=== PATIENT | male | born 1980 | race American Indian/Alaskan Native ===

== ENCOUNTER 2019-08-20 06:36 | Day surgery (SDC) | payer OTHER ==
[~2019-08-20 06:36] MED LIST: Lactated Ringers 1,000 ML IV SCH; cefOXitin 2 GM in Premix Bag 1 BAG IV ONE
[2019-08-20] MEDS ORDERED: fentaNYL 250 MCG/5 ML SDV ONE (07:01)
[2019-08-20] MEDS ORDERED: Propofol 200 MG/20 ML SDV ONE (07:01)
[2019-08-20] MEDS ORDERED: Midazolam 1 MG/ML 2 ML SDV ONE (07:01)
[2019-08-20] MEDS ORDERED: Ondansetron 4 MG/2 ML SDV ONE (07:01)
[2019-08-20] MEDS ORDERED: Rocuronium 100 MG/10 ML Syringe ONE (07:02)
[2019-08-20] MEDS ORDERED: Scopolamine 1.5 MG Transdermal Patch ONE (07:12)
[2019-08-20] MEDS ORDERED: Bupivacaine 0.5% 30 ML SDV ONE (07:33)
[2019-08-20] MEDS ORDERED: ceFAZolin 1 GM Vial ONE (07:33)
--- NOTE | 2019-08-20 07:33 | PCM.PREANE ---
Preanesthetic Assessment - Anesthesia/Transfusion/Family Hx Anesthesia History: Prior Anesthesia Without Reaction Family History of Anesthesia Reaction: No Transfusion History: No Prior Transfusion(s) - Review of Systems General: No Symptoms Pulmonary: No Symptoms Cardiovascular: No Symptoms Gastrointestinal: No Symptoms Neurological: No Symptoms Other: Reports: None - Physical Assessment NPO Status Date: 08/19/19 Height: 6 ft 7 in Weight: 112.037 kg ASA Class: 2 Mental Status: Alert & Oriented x3 Airway Class: Mallampati = 2 Dentition: Reports: Normal Dentition ROM/Head Extension: Full Lungs: Clear to Auscultation, Normal Respiratory Effort Cardiovascular: Regular Rate, Regular Rhythm - Allergies Allergies/Adverse Reactions: Allergies Allergy/AdvReac Type Severity Reaction Status Date / Time ampicillin Allergy Cannot Verified 08/16/19 10:15 Remember sulfamethoxazole Allergy Cannot Verified 08/16/19 10:15 [From Bactrim] Remember trimethoprim [From Bactrim] Allergy Cannot Verified 08/16/19 10:15 Remember - Blood Blood Available: No - Anesthesia Plan Pre-Op Medication Ordered: Other (scop) - Acknowledgements Anesthesia Type Planned: General Anesthesia Pt an Appropriate Candidate for the Planned Anesthesia: Yes Alternatives and Risks of Anesthesia Discussed w Pt/Guardian: Yes Pt/Guardian Understands and Agrees with Anesthesia Plan: Yes Additional Comments: PMH: htn: on losartan, 149/92 upon arrival, smoker PLAN: get PreAnesthesia Questionnaire HEENT History: Reports: Other (See Below) Other HEENT History: wears glasses, contacts Cardiovascular History: Reports: Hypertension Gastrointestinal History: Reports: Other (See Below) Other Gastrointestinal History: occasional heartburn- takes TUMS Musculoskeletal History: Reports: Fracture Other Musculoskeletal History: hx of fx heel - Past Surgical History GI Surgical History: Reports: Appendectomy - SUBSTANCE USE Smoking Status *Q: Current Every Day Smoker Tobacco Use Within Last Twelve Months: Cigarettes Recreational Drug Use History: No - HOME MEDS Home Medications: Home Meds Losartan Potassium 25 mg PO QAM 08/16/19 [History] - CURRENT (IN HOUSE) MEDS Current Meds: Current Medications Lactated Ringer's (Ringers, Lactated) 1,000 mls @ 125 mls/hr IV ASDIRECTED BETTY Discontinued Medications Fentanyl (Sublimaze) Confirm Administered Dose 250 mcg .ROUTE .STK-MED ONE Stop: 08/20/19 07:02 Cefoxitin Sodium 2 gm/ Premix 50 mls @ 100 mls/hr IV ONETIME ONE Stop: 08/20/19 06:29 Lidocaine HCl (Xylocaine-Mpf 1%) Confirm Administered Dose 5 ml .ROUTE .STK-MED ONE Stop: 08/20/19 07:03 Midazolam HCl (Versed 1 Mg/Ml) Confirm Administered Dose 2 mg .ROUTE .STK-MED ONE Stop: 08/20/19 07:02 Ondansetron HCl (Zofran) Confirm Administered Dose 4 mg .ROUTE .STK-MED ONE Stop: 08/20/19 07:02 Propofol (Diprivan 20 Ml) Confirm Administered Dose 200 mg .ROUTE .STK-MED ONE Stop: 08/20/19 07:02 Rocuronium [place] (Zemuron) Confirm Administered Dose 100 mg .ROUTE .STK-MED ONE Stop: 08/20/19 07:03 Scopolamine (Transderm-Scop) Confirm Administered Dose 1.5 mg .ROUTE .STK-MED ONE Stop: 08/20/19 07:13
[2019-08-20] MEDS ORDERED: cefOXitin 100 ML ONE (07:49)
[2019-08-20] MEDS ORDERED: Scopolamine 1.5 MG Transdermal Patch TRDERM PRN (08:07)
[2019-08-20] MEDS ORDERED: Dexamethasone 4 MG/ML 5 ML MDV ONE (08:36)
[2019-08-20] MEDS ORDERED: Phenylephrine/Normal Saline 100 MCG/ML 10 ML Syringe ONE (08:36)
[2019-08-20] MEDS ORDERED: fentaNYL 100 MCG/2 ML SDV IVPUSH PRN (08:56)
[2019-08-20] MEDS ORDERED: Ondansetron 4 MG/2 ML SDV IVPUSH ONE (08:56)
[2019-08-20] MEDS ORDERED: Labetalol 100 MG/20 ML MDV IVPUSH PRN (08:56)
[2019-08-20] MEDS ORDERED: Ketorolac 30 MG/ML SDV ONE (09:18)
[2019-08-20] MEDS ORDERED: Sugammadex Sodium 200 MG/2 ML VIAL ONE (09:31)
[2019-08-20] MEDS ORDERED: Morphine 10 MG/ML Syringe IVPUSH PRN (09:50)
[2019-08-20] MEDS ORDERED: Acetaminophen/HYDROcodone 325-5 MG Tab PO PRN (09:50)
--- NOTE | 2019-08-20 09:57 | PCM.OPNOTE ---
- General Post-Op/Procedure Note Date of Surgery/Procedure: 08/20/19 Operative Procedure(s): Laparoscopic cholecystectomy Pre Op Diagnosis: Cholelithiasis Post-Op Diagnosis: Acute and chronic cholecystitis with cholelithiasis Anesthesia Technique: General ET Tube (ASA II) Primary Surgeon: Leonard Diane Fishing Instructor: Janeth Laura Reason Fishing Instructor Was Necessary: Exposure Fluid Replacement, Intraop: 1,100 Output, Urine Amount: 100 EBL in mLs: 50 Condition: Good Free Text/Narrative:: DICTATION 817391 CPT CODE 27333
[2019-08-20] MEDS ORDERED: Lactated Ringers 1,000 ML IV SCH (10:00)
--- NOTE | 2019-08-20 11:32 | PCM48HPAN ---
Post Anesthesia Note - EVALUATION WITHIN 48HRS OF ANESTHETIC Vital Signs in Normal Range: Yes Patient Participated in Evaluation: Yes Respiratory Function Stable: Yes Airway Patent: Yes Cardiovascular Function Stable: Yes Hydration Status Stable: Yes Pain Control Satisfactory: Yes Nausea and Vomiting Control Satisfactory: Yes Mental Status Recovered: Yes Vital Signs: Last Vital Signs Temp 97.0 F 08/20/19 09:55 Pulse 76 08/20/19 10:25 Resp 13 08/20/19 10:25 BP 143/100 H 08/20/19 10:25 Pulse Ox 98 08/20/19 10:25
--- NOTE | 2019-08-20 11:32 | PCM.POSTAN ---
POST ANESTHESIA ASSESSMENT - MENTAL STATUS Mental Status: Alert, Oriented - VITAL SIGNS Vital Signs: Last Vital Signs Temp 97.0 F 08/20/19 09:55 Pulse 76 08/20/19 10:25 Resp 13 08/20/19 10:25 BP 143/100 H 08/20/19 10:25 Pulse Ox 98 08/20/19 10:25 - RESPIRATORY Respiratory Status: Respiratory Rate WNL, Airway Patent, O2 Saturation Stable - CARDIOVASCULAR CV Status: Pulse Rate WNL, Blood Pressure Stable - GASTROINTESTINAL GI Status: No Symptoms - POST OP HYDRATION Hydration Status: Adequate & Stable
--- NOTE | 2019-08-20 16:03 | OR ---
SURGEON: Leonard Diane M.D. DATE OF PROCEDURE: 08/20/2019 OPERATION PERFORMED: Laparoscopic cholecystectomy. PRIMARY SURGEON: Leonard Diane M.D. BUSINESS SUPPORT COORDINATOR: legislative assistant: NIDIA Valentino, or first assist registered nurse student. ANESTHESIA: General endotracheal ASA CLASSIFICATION: 2. PREOPERATIVE DIAGNOSIS: Symptomatic cholelithiasis. POSTOPERATIVE DIAGNOSIS: [id number] cholecystitis with cholelithiasis. ESTIMATED BLOOD LOSS: 50 mL. INTRAOPERATIVE FLUID REPLACEMENT: 1100 mL of crystalloid. INTRAOPERATIVE URINE OUTPUT: 100 mL. DESCRIPTION OF PROCEDURE: The patient was taken to the operating room and placed on the operating table in the supine position. Time-out was called for appropriate identification of the patient and procedure. Thigh-high TEDs and sequential compression boots were placed. Following satisfactory attainment of general endotracheal anesthesia, a Rogers catheter was placed in the patient's urinary bladder. The abdomen was prepped with DuraPrep solution and sterile drapes were applied. The skin just below the umbilicus was infiltrated with 0.5% Marcaine solution. A skin incision was made and deepened through the subcutaneous tissue obtaining hemostasis with the use of electrocautery. The Veress needle was introduced into the peritoneal cavity. The saline drop test was positive. Carbon dioxide pneumoperitoneum was established with the release set at 13 cm of water. Once a satisfactory pneumoperitoneum was established, 5-mm camera and port were placed through the infraumbilical incision. Examination of the right upper quadrant did reveal the tip of the gallbladder was present. There were multiple adhesions. The patient was now positioned with his feet down and rolled to the left. Under camera vision, 12-mm subxiphoid, 5-mm midclavicular, and 5-mm anterior axillary ports were placed. Each incision was preemptively infiltrated with 0.5% Marcaine solution. The gallbladder was grasped and adhesions were taken down with a combination of blunt dissection and the Harmonic scalpel. I was able to dissect down to the neck of the gallbladder and subsequently identify the cystic duct and cystic artery. Critical view of both structures was obtained. The structures were serially hemoclipped and divided with the laparoscopic Metzenbaum scissor. Using a combination of Harmonic scalpel and electrocautery, we were able to dissect the gallbladder away from its bed. Once that was accomplished, the gallbladder was placed in an EndoCatch. The right upper quadrant was irrigated with 1 L of sterile saline solution. All fluid was aspirated. There was minimal bleeding from the liver and no bile leak was noted. Surgicel and Anca were placed into the bed of the gallbladder. The right upper quadrant was irrigated with 250 mL of saline containing 20 mL of 0.5% Marcaine solution. That fluid was left in place. Again, under camera vision, the EndoCatch containing gallbladder was removed through the subxiphoid incision. It was necessary to enlarge the fascial incision to retrieve the gallbladder. Once the gallbladder was retrieved, the wound was inspected for hemostasis and bleeding sites were electrocoagulated. Under camera vision, the 5-mm midclavicular and anterior axillary ports were removed and finally the infraumbilical camera and port were removed. Again, the wounds were inspected for hemostasis and small bleeding sites were electrocoagulated. The fascia in the 12-mm incision was closed with 0 Vicryl. The infraumbilical and subxiphoid incisions were closed in 2 layers approximating the subcutaneous tissue with 3-0 Vicryl and the skin with subcuticular 4-0 Monocryl. The anterior axillary and midclavicular incisions were closed with subcuticular 4-0 Monocryl. All incisions were Steri-Stripped and dressed with sterile Tegaderm pads. Sponge, needle, and instrument counts were all correct. Rogers catheter was removed prior to emergence from anesthesia. The patient tolerated the procedure well. Following emergence from anesthesia and extubation, the patient was taken to recovery room in stable condition. DANNY / JAXON /[id number]
== END 2019-08-20 11:25 | disposition home or self-care (01) ==
LOC: MW.SDS 06:36
PROVIDERS: ATTEND Surgery
DX: K80.12 Calculus of gallbladder with acute and chronic cholecystitis without obstruction (principal); I10 Essential (primary) hypertension; F17.210 Nicotine dependence, cigarettes, uncomplicated; Z88.0 Allergy status to penicillin; Z88.2 Allergy status to sulfonamides; Z88.1 Allergy status to other antibiotic agents; Z90.49 Acquired absence of other specified parts of digestive tract
CPT/HCPCS: 47562; 88304; A9270; J0694; J1100; J1885; J2001; J2250; J2370; J2405; J2704; J3010; J3490; J7120; J0690